=== PATIENT | female | born 1985 | race Caucasian/White ===

== ENCOUNTER 2016-10-25 08:05 | Inpatient (IN) | payer OTHER ==
[2016-10-25] MEDS ORDERED: IBUPROFEN 600 MG TABLET (FP) PO PRN (08:54)
[2016-10-25] MEDS ORDERED: ACETAMINOPHEN 325 MG TABLET (FP) PO PRN (08:54)
[2016-10-25] MEDS ORDERED: BENZOCAINE 20% 57 GM BOTTLE TP PRN (08:54)
[2016-10-25] MEDS ORDERED: BISACODYL 10 MG SUPP.RECT RC PRN (08:54)
[2016-10-25] MEDS ORDERED: WITCH HAZEL 50% (TUCKS) 40 PAD/JAR PAD TP PRN (08:54)
[2016-10-25] MEDS ORDERED: METHYLERGONOVINE MALEATE 0.2 MG/1 ML AMP IM PRN (08:54)
[2016-10-25] MEDS ORDERED: BENZOCAINE 28 GM HEMORRHOIDAL OINTMENT TP PRN (08:54)
[2016-10-25] MEDS ORDERED: oxyCODONE HCL 5 MG TABLET PO PRN (08:54)
[2016-10-25] MEDS ORDERED: D5W-LR W/ 20 UNITS OXYTOCIN 1,000 ML IV SCH (09:00)
--- NOTE | 2016-10-25 09:08 | HP ---
Past Medical History - Admission History of Present Illness: 31 yo @ 38 4/7 wks by LMP consistent with first trimester ultrasound complicated by: 1. Anemia, on ferrous supplements 2. GBS positive - no penicillin allergy Patient presented with chief complaint of contractions. She reports contractions began at 0430 when she awoke with contractions. She presented to labor and delivery at 0805 and was found to be 9 cm dilated. She proceeded to deliver precipitously at 0826, RN at bedside. Baby with spontaneous cry. Placenta delivered spontaneously and intact. Patient examined by myself, bilateral labial tears noted and repaired using 4-0 chromic gut in an interrupted fashion. Mother and infant stable in LDR. History Source: Patient Limitations to Obtaining History: No Limitations - Past Medical History Cardiovascular: No: HTN Pulmonary: No: Asthma Gastrointestinal: No: GERD ...: 2 ...Para: 1 ...Term: 1 ... Weeks Gestation by Dates: 38.4 Heme/Onc: Yes: Anemia - Past Surgical History Past Surgical History: Yes: None Hx Myomectomy: No Hx Transabdominal Cerclage: No - Smoking History Have you smoked in the past 12 months: No - Alcohol/Substance Use Hx Alcohol Use: No History of Substance Use: reports: None - Social History Usual Living Arrangement: Yes: Alone History of Recent Travel: No Home Medications - Allergies Allergies/Adverse Reactions: Allergies Allergy/AdvReac Type Severity Reaction Status Date / Time No Known Allergies Allergy Verified 10/19/16 15:07 - Home Medications Home Medications: Ambulatory Orders Ferrous Sulfate [Feosol] 325 mg PO BID 10/19/16 Vit/Iron Fumarate/FA [ Tablet] 1 each PO DAILY 10/19/16 Family Disease History - Family Disease History Family History: Denies Review of Systems - Review of Systems Constitutional: reports: No Symptoms Neck: reports: No Symptoms Cardiovascular: reports: No Symptoms Respiratory: reports: No Symptoms Genitourinary: reports: No Symptoms Integumentary: reports: No Symptoms Neurological: reports: No Symptoms Endocrine: reports: No Symptoms Psychiatric: reports: No Symptoms Physical Exam - Maternity Constitutional: Yes: Well Nourished, No Distress, Calm Cardiovascular: Yes: Regular Rate and Rhythm Lungs: Clear to auscultation - Abdominal Exam/OB Number of Fetuses: Single Presentation: Vertex - Physical Exam Edema: No Psychiatric: Yes: Alert, Oriented Hemorrhage Risk Assessment - Risk Factors Medium Risk Factors: Yes: None High Risk Factors: Yes: None Risk Score: 1 Risk Level: Medium Risk Assessment/Plan 31 yo s/p precipitous vaginal delivery 1. Admit to L &D 2. Routine labs collected and sent 3. s/p Ampcillin prior to delivery 4. Will proceed with routine care
--- NOTE | 2016-10-25 09:12 | PN ---
Delivery - Delivery Vaginal Delivery: No Problems EBL (cc): 200 Delivery, Single - Stages of Labor Date 1st Stage Initiatied: 10/25/16 Time 1st Stage Initiated: 04:45 Date 2nd Stage Initiated: 10/25/16 Time 2nd Stage Initiated: 08:20 Date of Delivery: 10/25/16 Time of Delivery: 08:26 Date Placenta Delivered: 10/25/16 Time Placenta Delivered: 08:30 Placenta: Yes: Spontaneous - Condition of Infant Infant Gender: Female Weight: 6 lb 15 oz Position: Right, OA - 1 Minute Total Score: 9 5 Minutes Total Score: 9 Remarks - Remarks Remarks: Female MARY JO position 9,9 Wt 6 lb 15 oz 19 inches
[2016-10-25 09:25] VITALS: BMI 26.1
[2016-10-25 09:46] LABS: BASOPHIL 0.4 % (0-2.0); EOSINOPHIL 0.2 % (0-4.5); MCH 30.3 pg (25.7-33.7); MCHC 33.8 g/dl (32.0-36.0); MEAN CELL VOLUME 89.4 fl (80-96); MEAN PLT VOLUME 9.5 fl (7.5-11.1); NEUTROPHILS 92.4 % (42.8-82.8); PLATELET COUNT 168 K/MM3 (134-434); WHITE BLOOD COUNT 14.9 K/mm3 (4.0-10.0)
[2016-10-25 09:57] LABS: INR 0.98 (0.82-1.09); PROTHROMBIN TIME (PATIENT) 10.8 SEC (9.98-11.88)
[2016-10-25 09:59] LABS: ACTIVATED PTT 21.1 SECONDS (26.9-34.4)
[2016-10-25] MEDS ORDERED: AMPICILLIN - 100 ML IVPB ONE (10:00)
[2016-10-25] MEDS ORDERED: TUBERCULIN PPD 5 TU/0.1ML SYRINGE (IN PATIENT USE ONLY) ID ONE (10:00)
[2016-10-25] MEDS ORDERED: DEXTROSE 5%-LACTATED RINGERS 1,000 ML IV SCH (10:00)
[2016-10-25] MEDS ORDERED: AMPICILLIN - 2 GM in SODIUM CHLORIDE 100 ML IVPB ONE (10:00)
[2016-10-25 10:16] LABS: ANION GAP 10 (8-16); CALCIUM 8.3 mg/dL (8.5-10.1); CO2 21 mmol/L (21-32); CREATININE 0.7 mg/dL (0.55-1.02); GLUCOSE,RANDOM 238 mg/dL (74-106)
[2016-10-25] MEDS: PRENATAL VITAMINS W/ FOLIC ACID TABLET (FP) PO SCH (11:26)
[2016-10-26 07:07] LABS: BASOPHIL 0.4 % (0-2.0); EOSINOPHIL 0.9 % (0-4.5); MCH 30.2 pg (25.7-33.7); MEAN CELL VOLUME 88.9 fl (80-96); MEAN PLT VOLUME 8.8 fl (7.5-11.1); NEUTROPHILS 72.4 % (42.8-82.8); PLATELET COUNT 165 K/MM3 (134-434); RDW 13.4 % (11.6-15.6); WHITE BLOOD COUNT 12.3 K/mm3 (4.0-10.0)
[2016-10-26] MEDS: PRENATAL VITAMINS W/ FOLIC ACID TABLET (FP) PO SCH (09:49)
--- NOTE | 2016-10-26 10:46 | PN ---
Post Progress Note - Subjective Subjective: No complaints Post Day: 1 Type of Delivery: Vital Signs: Vital Signs Temperature 98.5 F 10/26/16 06:09 Pulse Rate 57 L 10/26/16 06:09 Respiratory Rate 18 10/26/16 06:09 Blood Pressure 115/71 10/26/16 06:09 O2 Sat by Pulse Oximetry (%) Breast Exam: Yes: Soft Uterus: Yes: Fundus Firm, Fundus below umbilicus, Non-tender Abdomen/GI: Yes: Abdomen soft, Passing flatus, Tolerating PO Lochia: Yes: Rubra Lochia, amount: Small Extremities: Yes: Calves non-tender, Edema (trace) Perineum: Yes: Intact Activity: Ambulating - Labs Labs: CBC WBC 12.3 K/mm3 (4.0-10.0) H 10/26/16 05:40 RBC 3.61 M/mm3 (3.60-5.2) 10/26/16 05:40 Hgb 10.9 GM/dL (10.7-15.3) 10/26/16 05:40 Hct 32.0 % (32.4-45.2) L 10/26/16 05:40 MCV 88.9 fl (80-96) 10/26/16 05:40 MCHC 34.0 g/dl (32.0-36.0) 10/26/16 05:40 RDW 13.4 % (11.6-15.6) 10/26/16 05:40 Plt Count 165 K/MM3 (134-434) 10/26/16 05:40 MPV 8.8 fl (7.5-11.1) 10/26/16 05:40 Neutrophils % 72.4 % (42.8-82.8) D 10/26/16 05:40 Lymphocytes % 19.3 % (8-40) D 10/26/16 05:40 Monocytes % 7.0 % (3.8-10.2) D 10/26/16 05:40 Eosinophils % 0.9 % (0-4.5) D 10/26/16 05:40 Basophils % 0.4 % (0-2.0) 10/26/16 05:40 Assessment/Plan 31yo P2 s/p , doing well stable, afebrile. care instructions reviewed. Continue routine care. Ambulation encouraged Discharge instruction reviewed.
[2016-10-26] MEDS ORDERED: SENNOSIDES/DOCUSATE COMBO (SENNA PLUS) TABLET (UD) PO PRN (22:00)
[2016-10-27] MEDS: PRENATAL VITAMINS W/ FOLIC ACID TABLET (FP) PO SCH (09:13)
[2016-10-27 09:58] VITALS: BP 124/66; PULSE 66; TEMP 98.4
== END 2016-10-27 12:00 | disposition home or self-care (01) | DRG 775 ==
LOC: JLDR 08:05 → J3W 11:01
PROVIDERS: ADMIT Obstetrics & Gynecology; ATTEND Obstetrics & Gynecology
PROC: 0HQ9XZZ Repair Perineum Skin, External Approach (ICD-10-PCS; principal; 2016-10-25)
PROC: 10E0XZZ Delivery of Products of Conception, External Approach (ICD-10-PCS; 2016-10-25)
DX: O70.0 First degree perineal laceration during delivery (principal); O99.02 Anemia complicating childbirth; D64.9 Anemia, unspecified; O99.824 Streptococcus B carrier state complicating childbirth; O62.8 Other abnormalities of forces of labor; Z3A.38 38 weeks gestation of pregnancy; Z37.0 Single live birth
CPT/HCPCS: 36415; 59409; 80048; 85025; 85610; 85730; 86593; 86850; 86900; 86901

== ENCOUNTER 2017-06-06 19:31 | Inpatient (IN) | payer SELFPAY ==
[2017-06-06 20:19] VITALS: BMI 23.9
--- NOTE | 2017-06-06 20:25 | PDOC ---
History of Present Illness - General History Source: Patient Exam Limitations: No Limitations - History of Present Illness Initial Comments: 06/06/17 20:36 The patient is a 31 year old female with no other significant PMH who presents to the emergency department with vaginal bleeding beginning approximately 3 weeks ago. The patient reports giving in October and has been since then, and reports not getting her period during this time. She reports an onset of vaginal bleeding about 3 weeks ago which she believed to be her period, but notes associated back pain and pelvic pain that is atypical for her. She reports going to Urgent Care which reported a positive urine hCG test. She reports she was unaware of her current . The patient denies chest pain, shortness of breath, headache and dizziness. Denies fever, chills, nausea, vomit, diarrhea and constipation. Denies dysuria, frequency, urgency and hematuria. Allergies: NKA Past surgical history: None reported. Social history: No reported cigarette, alcohol, or drug use. PCP: None reported. <Ronald Gallagher - Last Filed: 06/06/17 22:44> - General History Source: Patient <Blayne Be - Last Filed: 06/06/17 22:52> - General Chief Complaint: Vaginal Bleeding Stated Complaint: PCP SENT/ABDOMINAL PAIN Time Seen by Provider: 06/06/17 20:25 Past History <Ronald Gallagher - Last Filed: 06/06/17 22:44> - Past Medical History Asthma: No Cancer: No Cardiac Disorders: No Diabetes: No HTN: No Seizures: No Thyroid Disease: No - Suicide/Smoking/Psychosocial Hx Smoking History: Never smoked Have you smoked in the past 12 months: No Information on smoking cessation initiated: No Hx Alcohol Use: No Drug/Substance Use Hx: No Hx Substance Use Treatment: No <Blayne Be - Last Filed: 06/06/17 22:52> - Past Medical History Allergies/Adverse Reactions: Allergies Allergy/AdvReac Type Severity Reaction Status Date / Time No Known Allergies Allergy Verified 06/06/17 20:18 Home Medications: Ambulatory Orders Ferrous Sulfate [Feosol] 325 mg PO BID 10/19/16 Vit/Iron Fum/Folic AC [ Tablet] 1 each PO DAILY 10/19/16 Review of Systems - Review of Systems Able to Perform ROS?: Yes Comments:: 06/06/17 20:37 CONSTITUTIONAL: Absent: fever, chills, diaphoresis, generalized weakness, malaise, loss of appetite HEENT: Absent: rhinorrhea, nasal congestion, throat pain, throat swelling, difficulty swallowing, mouth swelling, ear pain, eye pain, visual Changes CARDIOVASCULAR: Absent: chest pain, syncope, palpitations, irregular heart rate, lightheadedness , peripheral edema RESPIRATORY: Absent: cough, shortness of breath, dyspnea with exertion, orthopnea, wheezing, stridor, hemoptysis GASTROINTESTINAL: Absent: abdominal pain, abdominal distension, nausea, vomiting, diarrhea, constipation, melena, hematochezia GENITOURINARY: (+) Vaginal bleeding. Absent: dysuria, frequency, urgency, hesitancy, hematuria, flank pain, MUSCULOSKELETAL: (+) Back pain. (+) Pelvic pain. Absent: arthralgia, joint swelling SKIN: Absent: rash, itching, pallor HEMATOLOGIC/IMMUNOLOGIC: Absent: easy bleeding, easy bruising, lymphadenopathy, frequent infections ENDOCRINE: Absent: unexplained weight gain, unexplained weight loss, heat intolerance, cold intolerance NEUROLOGIC: Absent: headache, focal weakness or paresthesias, dizziness, unsteady gait, seizure, mental status changes, bladder or bowel incontinence PSYCHIATRIC: Absent: anxiety, depression, suicidal or homicidal ideation, hallucinations. <Ronald Gallagher - Last Filed: 06/06/17 22:44> *Physical Exam - Vital Signs Last Vital Signs Temp Pulse Resp BP Pulse Ox 98.3 F 88 20 127/84 99 06/06/17 20:18 06/06/17 20:18 06/06/17 20:18 06/06/17 20:18 06/06/17 20:18 - Physical Exam Comments: 06/06/17 20:37 GENERAL: Well developed, well nourished. Awake and alert. No acute distress. HEENT: Normocephalic, atraumatic. PERRLA, EOMI. No conjunctival pallor. Sclera are non- icteric. Moist mucous membranes. Oropharynx is clear. NECK: Supple. Full ROM. No JVD. Carotid pulses 2+ and symmetric, without bruits. No thyromegaly. No lymphadenopathy. CARDIOVASCULAR: Regular rate and rhythm. No murmurs, rubs, or gallops. Distal pulses are 2+ and symmetric. PULMONARY: No evidence of respiratory distress. Lungs clear to auscultation bilaterally. No wheezing, rales or rhonchi. ABDOMINAL: Soft. Non-tender. Non-distended. No rebound or guarding. No organomegaly. Normoactive bowel sounds. PELVIC: Deferred to pelvic US. MUSCULOSKELETAL Normal range of motion at all joints. No bony deformities or tenderness. No CVA tenderness. EXTREMITIES: No cyanosis. No clubbing. No edema. No calf tenderness. SKIN: Warm and dry. Normal capillary refill. No rashes. No jaundice. NEUROLOGICAL: Alert, awake, appropriate. Cranial nerves 2-12 intact. No deficits to light touch and temperature in face, upper extremities and lower extremities. No motor deficits in the in face, upper extremities and lower extremities. Normoreflexic in the upper and lower extremities. Normal speech. Toes are downgoing bilaterally. Gait is normal without ataxia. PSYCHIATRIC: Cooperative. Good eye contact. Appropriate mood and affect. <Ronald Gallagher - Last Filed: 06/06/17 22:44> - Vital Signs Last Vital Signs Temp Pulse Resp BP Pulse Ox 98.3 F 88 20 127/84 99 06/06/17 20:18 06/06/17 20:18 06/06/17 20:18 06/06/17 20:18 06/06/17 20:18 <Blayne Be - Last Filed: 06/06/17 22:52> ED Treatment Course - LABORATORY CBC & Chemistry Diagram: 06/06/17 20:50 06/06/17 20:50 - Additional Consults Time Called: 22:45 Consult/PCP: Spoke with Dr. Fonseca (RAMP AGENT) regarding this pt. <Ronald Gallagher - Last Filed: 06/06/17 22:44> - LABORATORY CBC & Chemistry Diagram: 06/06/17 20:50 06/06/17 20:50 <Blayne Be - Last Filed: 06/06/17 22:52> *DC/Admit/Observation/Transfer - Attestations Scribe Attestion: 06/06/17 20:37 Documentation prepared by Ronald Gallagher, acting as esthetician and manager medical spa for Blayne Be DO. <Ronald Gallagher - Last Filed: 06/06/17 22:44> - Discharge Dispostion Admit: Yes <Blayne Be - Last Filed: 06/06/17 22:52> Diagnosis at time of Disposition: Ruptured ectopic - Discharge Dispostion Condition at time of disposition: Stable
[2017-06-06 20:57] LABS: BASO % 0.7 % (0-2.0); EOS % 0.6 % (0-4.5); HEMATOCRIT 34.6 % (32.4-45.2); HEMOGLOBIN 11.4 GM/dL (10.7-15.3); LYMPH % 25.7 % (8-40); MCH 28.5 pg (25.7-33.7); MCHC 32.8 g/dl (32.0-36.0); MEAN CELL VOLUME 86.8 fl (80-96); MEAN PLT VOLUME 8.5 fl (7.5-11.1); MONO % 8.1 % (3.8-10.2); NEUT % 64.9 % (42.8-82.8); PLATELET COUNT 263 K/MM3 (134-434); RBC 3.99 M/mm3 (3.60-5.2); WHITE BLOOD COUNT 7.4 K/mm3 (4.0-10.0)
[2017-06-06 21:28] LABS: URINE APPEARANCE CLEAR; URINE BILIRUBIN NEGATIVE (NEGATIVE); URINE BLOOD 3+ (NEGATIVE); URINE COLOR LT. YELLOW; URINE GLUCOSE (UA) NEGATIVE (NEGATIVE); URINE KETONE NEGATIVE (NEGATIVE); URINE LEUK ESTERASE NEGATIVE (NEGATIVE); URINE NITRITE NEGATIVE (NEGATIVE); URINE PROTEIN NEGATIVE (NEGATIVE); URINE UROBILINOGEN 0.2 mg/dL (0.2-1.0)
[2017-06-06 21:39] LABS: ALBUMIN 4.2 g/dl (3.4-5.0); ALK PHOS 107 U/L (45-117); ANION GAP 6 (8-16); BILIRUBIN,TOTAL 0.4 mg/dL (0.2-1.0); BLOOD UREA NITROGEN 9 mg/dL (7-18); CALCIUM 8.8 mg/dL (8.5-10.1); CHLORIDE 104 mmol/L (98-107); CO2 27 mmol/L (21-32); CREATININE 0.5 mg/dL (0.55-1.02); GLUCOSE,RANDOM 79 mg/dL (74-106); POTASSIUM 4.1 mmol/L (3.5-5.1); SGOT/AST 20 U/L (15-37); SGPT/ALT 20 U/L (12-78); SODIUM 137 mmol/L (136-145); TOT PROT 8.3 g/dl (6.4-8.2)
[2017-06-06 21:44] LABS: EPI CELLS RARE /HPF (FEW); URINE BACTERIA RARE /hpf (NONE SEEN)
[2017-06-06] MEDS ORDERED: SODIUM CHLORIDE 1,000 ML IV STA (22:49)
[2017-06-06] MEDS ORDERED: PROMETHAZINE HCL 25 MG/1 ML VIAL IVPUSH PRN (23:26)
[2017-06-06] MEDS ORDERED: ONDANSETRON 4 MG/2 ML VIAL IVPUSH PRN (23:26)
[2017-06-06] MEDS ORDERED: LACTATED RINGERS SOLUTION 1,000 ML IV SCH (23:30)
[2017-06-06] MEDS ORDERED: PROPOFOL 20 ML ONE (23:35)
[2017-06-06] MEDS ORDERED: ROCURONIUM BROMIDE 50 MG/5 ML VIAL ONE (23:36)
[2017-06-06] MEDS ORDERED: MIDAZOLAM HCL 2 MG/2 ML SINGLE DOSE VIAL ONE (23:36)
[2017-06-06 23:37] LABS: INR 1.06 (0.82-1.09)
[2017-06-06] MEDS ORDERED: LIDOCAINE HCL/PF 2% SDV 5ML VIAL ONE (23:39)
[2017-06-06 23:40] LABS: ACTIVATED PTT 33.4 SECONDS (26.9-34.4)
--- NOTE | 2017-06-07 00:13 | HP ---
Past Medical History - Primary Care Physician PCP:: José Fonseca - Admission Chief Complaint: ruptured ectopic History of Present Illness: 31 yo f , irregular period , breast feeding with vaginal bleeding abdominal pain, sono fluid in pelvis consistant with ruptured ectopic admitted for laparoscopy , rba discussed History Source: Patient Limitations to Obtaining History: No Limitations - Past Medical History Heme/Onc: Yes: Anemia - Past Surgical History Past Surgical History: Yes: None Hx Myomectomy: No Hx Transabdominal Cerclage: No - Smoking History Smoking history: Never smoked Have you smoked in the past 12 months: No - Alcohol/Substance Use Hx Alcohol Use: No History of Substance Use: reports: None - Social History History of Recent Travel: No Home Medications - Allergies Allergies/Adverse Reactions: Allergies Allergy/AdvReac Type Severity Reaction Status Date / Time No Known Allergies Allergy Verified 06/06/17 20:18 - Home Medications Home Medications: Ambulatory Orders Ferrous Sulfate [Feosol] 325 mg PO BID 10/19/16 Vit/Iron Fum/Folic AC [ Tablet] 1 each PO DAILY 10/19/16 Review of Systems - Review of Systems Constitutional: reports: No Symptoms Eyes: reports: No Symptoms HENT: reports: No Symptoms Neck: reports: No Symptoms Cardiovascular: reports: No Symptoms Respiratory: reports: No Symptoms Gastrointestinal: reports: Abdominal Pain Genitourinary: reports: No Symptoms, Pain Breasts: reports: No Symptoms Reported Musculoskeletal: reports: No Symptoms Integumentary: reports: No Symptoms Neurological: reports: No Symptoms Endocrine: reports: No Symptoms Hematology/Lymphatic: reports: No Symptoms Psychiatric: reports: No Symptoms Physical Exam-SSRS REPORT DEVELOPER Vital Signs: Vital Signs Temperature 98.3 F 06/06/17 20:18 Pulse Rate 88 06/06/17 20:18 Respiratory Rate 20 06/06/17 20:18 Blood Pressure 127/84 06/06/17 20:18 O2 Sat by Pulse Oximetry (%) 99 06/06/17 20:18 Constitutional: Yes: Well Nourished, No Distress, Calm Eyes: Yes: WNL, Conjunctiva Clear, EOM Intact HENT: Yes: WNL, Atraumatic, Normocephalic Neck: Yes: WNL, Supple, Trachea Midline Cardiovascular: Yes: WNL, Regular Rate and Rhythm Respiratory: Yes: WNL, Regular, CTA Bilaterally Gastrointestinal: Yes: WNL ...Rectal Exam: Yes: WNL Renal/: Yes: WNL External Genitalia: Yes: Normal Vaginal Exam: Yes: Bleeding Cervix: Yes: Normal Uterus: Yes: Tender Adnexa: Tender: Left, Right Breast(s): Yes: WNL Musculoskeletal: Yes: WNL Extremities: Yes: WNL Integumentary: Yes: WNL Neurological: Yes: WNL, Alert, Oriented ...Motor Strength: WNL Psychiatric: Yes: WNL, Alert, Oriented Labs: CBC, BMP 06/06/17 20:50 06/06/17 20:50 Assessment/Plan lparoscopy, salpingectomy, D&C
[2017-06-07] MEDS ORDERED: ONDANSETRON 4 MG/2 ML VIAL IVPUSH PRN (00:15)
[2017-06-07] MEDS ORDERED: ELECTROLYTE-148 SOLN 1,000 ML IV SCH (00:15)
[2017-06-07] MEDS ORDERED: IBUPROFEN 800 MG/8 ML IJ IVPB PRN (00:15)
[2017-06-07] MEDS ORDERED: oxyCODONE HCL 5 MG TABLET PO PRN (00:15)
[2017-06-07] MEDS ORDERED: ceFAZolin SODIUM 1 GM VIAL IVPB ONE (00:28)
[2017-06-07] MEDS ORDERED: ceFAZolin SODIUM 1 GM VIAL ONE (00:30)
[2017-06-07] MEDS ORDERED: GLYCOPYRROLATE 0.2 MG/1 ML VIAL ONE (00:57)
[2017-06-07] MEDS ORDERED: NEOSTIGMINE METHYLSULFATE 0.5 MG/ML - 10 ML MDV ONE (00:58)
[2017-06-07] MEDS ORDERED: KETOROLAC TROMETHAMINE 30 MG/1 ML VIAL ONE (01:04)
[2017-06-07 10:21] VITALS: BP 109/62; PULSE 59; TEMP 98.2
--- NOTE | 2017-06-07 18:51 | OP ---
DATE OF OPERATION: 06/07/2017 PREOPERATIVE DIAGNOSIS: Rule out ruptured ectopic . POSTOPERATIVE DIAGNOSIS: Rule out ruptured ectopic . PROCEDURE: Dilation and curettage, laparoscopy, and left salpingectomy and evacuation of the blood and blood clots from the pelvic cavity. OPERATION: Patient was taken to operating room, where under adequate general anesthesia in position. Examination under anesthesia revealed the external genitalia to be normal. Vagina, a small amount of dark blood. Cervix was closed. Uterus normal size. Adnexa, no masses palpable. Then, with a weighted speculum in the vagina, anterior lip of the cervix was grasped with a single-tooth tenaculum. Cervix was slightly dilated with Hegar dilator, and then uterine cavity was gently curetted with smooth curet. No tissue was obtained. Then Hulka was introduced into the uterine cavity. Patient was prepped and draped in dorsal lithotomy position for the pelviscopy. A small infraumbilical skin incision was made, Veress needle was introduced, pneumoperitoneum was established, and then a 5-mm trocar was introduced to the umbilical area, and then the scope was introduced into the abdominal cavity. Then under direct vision a 10-mm trocar was introduced to the left hypogastric area, and a 5-mm to the right hypogastric area. Then visualization of the pelvis showed large amount of blood in the pelvis and in the both pelvic gutters. The blood was suctioned. Then there was a large tubal ectopic seen in the left tube, a bluish mass occupying almost 2/3 of the length of the tube, with some bleeding from the fimbria end. Then the left tube was grasped with a grasper and then with a Ligasure cautery, cauterized along the mesosalpinx, and the tube was removed. Then an Endobag was introduced through the 10-mm trocar, and the specimen was removed. Pelvic cavity several times irrigated, no active bleeding was seen. The right tube and ovary were normal, no cul-de-sac adhesions. Upper abdomen was checked, was normal. Pelvic cavity was several times irrigated, and all the blood was removed, and then the left 10-mm trocar port was closed with interrupted suture of 0 Vicryl, and then subcutaneous tissue with 3-0 Vicryl, and skin was closed with Dermabond glucose. Patient tolerated procedure well, left the OR in good condition. PHILIP CHING M.D. [id number]
--- NOTE | 2017-06-11 12:26 | PATH ---
Surgical Pathology Report Patient Name: KIMBERLY MCBRIDE [facility]. Rec. #: [id number] /Age/Gender: 1985 (Age: 31) / F Account: [id number] Location: [facility] MED/SURG Taken: 06/07/2017 Received: 06/07/2017 Reported: 06/11/2017 Physicians: José Fonseca M.D. Specimen(s) Received A: ENDOMETRIAL CURETTINGS B: LEFT FALLOPIAN TUBE WITH CONTENTS Clinical History Ruptured ectopic Final Diagnosis A. ENDOMETRIAL CURETTINGS, DILATION AND CURETTAGE: FRAGMENTS OF CONDENSED ENDOMETRIAL STROMA CONSISTENT WITH STROMAL BREAKDOWN, LOWER UTERINE SEGMENT, SCANT ENDOCERVICAL AND ECTOCERVICAL TISSUE. B. FALLOPIAN TUBE AND CONTENTS, LEFT, SALPINGECTOMY CHORIONIC VILLI IN A BACKGROUND OF HEMORRHAGE PRESENT WITHIN THE FALLOPIAN TUBE, CONSISTENT WITH ECTOPIC . Electronically Signed Kisha Hull M.D. Gross Description A. Received in formalin labeled "endometrial curettings," is a 2.0 x 1.7 x 0.3 cm aggregate of green-brown soft tissue fragments admixed with blood-tinged mucous. The formalin is filtered and the specimen is entirely submitted in one cassette. B. Received in formalin labeled "left fallopian tube and contents," is a 6.5 cm in length fimbriated, focally disrupted fallopian tube. The outer surfaces is green guerrero with a focal defect. Sectioning reveals a dilated lumen containing red-brown blood clot. Also received within the same container is a 7.5 x 6.0 x 1.8 cm aggregate of red-brown soft tissue fragments admixed with blood clot. Possible villous tissue is identified. No somatic tissue is identified. Brass Cleaner sections are submitted in 4 cassettes as follows: 1-possible villous tissue; 2-fimbria; 3-4-cross sections of fallopian tube. 06/10/201706/10/2017
== END 2017-06-07 13:54 | disposition home or self-care (01) | DRG 545 ==
LOC: JER 19:31 → JERBED 22:53 → J8W 06-07 03:14
PROVIDERS: ADMIT Obstetrics & Gynecology; ATTEND Obstetrics & Gynecology
PROC: 10T24ZZ Resection of Products of Conception, Ectopic, Percutaneous Endoscopic Approach (ICD-10-PCS; principal; 2017-06-06)
PROC: 0WCJ4ZZ Extirpation of Matter from Pelvic Cavity, Percutaneous Endoscopic Approach (ICD-10-PCS; 2017-06-06)
PROC: 0UT64ZZ Resection of Left Fallopian Tube, Percutaneous Endoscopic Approach (ICD-10-PCS; 2017-06-06)
DX: O00.81 Other ectopic pregnancy with intrauterine pregnancy (principal); N93.8 Other specified abnormal uterine and vaginal bleeding
CPT/HCPCS: 36415; 76817-TC; 80053; 81003; 81015; 84702; 85025; 85610; 85730; 86850; 86900; 86901; 87086; 88305-TC; 94760; 99285-25

== ENCOUNTER 2022-01-12 05:09 | Day surgery (SDC) | payer BC ==
[2022-01-11 10:11] VITALS: BMI 22.1
[2022-01-12] MEDS ORDERED: BUPIVACAINE HCL/PF 0.5% (5MG/ML) 10 ML VIAL ONE (12:13)
[2022-01-12 14:34] LABS: EOS % 3.8 % (0-4.5); HEMATOCRIT 36.7 % (32.4-45.2); HEMOGLOBIN 12.3 GM/dL (10.7-15.3); LYMPH % 28.7 % (8-40); MCH 29.3 pg (25.7-33.7); MCHC 33.4 g/dl (32.0-36.0); MEAN CELL VOLUME 87.6 fl (80-96); MONO % 11.8 % (3.8-10.2); NEUT % 54.7 % (42.8-82.8); PLATELET COUNT 258 10^3/uL (134-434); RBC 4.19 M/mm3 (3.60-5.2); RDW 12.5 % (11.6-15.6); WHITE BLOOD COUNT 6.8 K/mm3 (4.0-10.0)
[2022-01-12 14:47] LABS: INR 1.14 (0.83-1.09); PROTHROMBIN TIME (PATIENT) 13.1 SEC (9.7-13.0)
[2022-01-12 14:50] LABS: ACTIVATED PTT 31.6 SECONDS (25.2-36.5)
[2022-01-12] MEDS ORDERED: MIDAZOLAM HCL 2 MG/2 ML SINGLE DOSE VIAL ONE (14:58)
[2022-01-12] MEDS ORDERED: DEXAMETHASONE SOD PHOSPHATE 4 MG/1 ML VIAL ONE (14:58)
[2022-01-12] MEDS ORDERED: PROPOFOL 20 ML ONE (14:58)
[2022-01-12] MEDS ORDERED: ONDANSETRON 4 MG/2 ML VIAL ONE (14:58)
[2022-01-12] MEDS ORDERED: ROCURONIUM BROMIDE 50 MG/5 ML SYRINGE ONE (14:58)
[2022-01-12 14:59] LABS: CHLORIDE 104 mmol/L (98-107); SODIUM 139 mmol/L (136-145)
[2022-01-12 15:01] LABS: CALCIUM 9.2 mg/dL (8.5-10.1)
[2022-01-12 15:02] LABS: ANION GAP 6 MMOL/L (8-16); CO2 29 mmol/L (21-32); GLUCOSE,RANDOM 80 mg/dL (74-106)
[2022-01-12 15:05] LABS: CREATININE 0.7 mg/dL (0.55-1.3); SGOT/AST 24 U/L (15-37); SGPT/ALT 27 U/L (13-61)
[2022-01-12 15:06] LABS: TOT PROT 8.2 g/dl (6.4-8.2)
[2022-01-12 15:07] LABS: BILIRUBIN,TOTAL 0.7 mg/dL (0.2-1)
[2022-01-12 15:08] LABS: ALK PHOS 60 U/L (45-117)
[2022-01-12] MEDS ORDERED: ceFAZolin SODIUM 1 GM VIAL IVPB ONE (15:25)
[2022-01-12] MEDS ORDERED: NEOSTIGMINE METHYLSULFATE 0.5 MG/ML - 10 ML MDV ONE (15:46)
[2022-01-12] MEDS ORDERED: BUPIVACAINE HCL/PF 0.5% (5MG/ML) 10 ML VIAL IJ ONE ×2 (15:49)
[2022-01-12] MEDS ORDERED: oxyCODONE HCL 5 MG TABLET PO PRN (16:11)
[2022-01-12] MEDS ORDERED: PROMETHAZINE HCL 25 MG/1 ML VIAL IVPUSH PRN (16:11)
[2022-01-12] MEDS ORDERED: ONDANSETRON 4 MG/2 ML VIAL IVPUSH PRN (16:11)
[2022-01-12] MEDS ORDERED: LACTATED RINGERS SOLUTION 1,000 ML IV SCH (16:15)
[2022-01-12 17:31] VITALS: RESP 16
[2022-01-12 18:38] VITALS: TEMP 97.5
[2022-01-12 18:40] VITALS: BP 116/70; PULSE 100
== END 2022-01-12 18:25 | disposition home or self-care (01) ==
LOC: JASU-SURG 05:09
PROVIDERS: ATTEND Obstetrics & Gynecology
PROC: 0UT54ZZ Resection of Right Fallopian Tube, Percutaneous Endoscopic Approach (ICD-10-PCS; principal; 2022-01-12 15:36)
DX: Z30.2 Encounter for sterilization (principal)
CPT/HCPCS: 36415; 80053; 81025; 84702; 85025; 85610; 85730; 86850; 86900; 86901; 88305-TC; 94760